=== PATIENT | female | born 1940 | race Hispanic/Latino ===

== ENCOUNTER 2017-04-28 06:37 | Emergency (ER) | payer MEDICARE ==
[2017-04-28 06:38] VITALS: BMI 24.4
--- NOTE | 2017-04-28 07:44 | ED PDOC ---
Arrival/HPI - General Chief Complaint: Lower Extremity Problem/Injury Time Seen by Provider: 04/28/17 07:05 Historian: Patient, Family - History of Present Illness Narrative History of Present Illness (Text): 04/28/17 07:17 Pt is a 76 year old female, whose denies any significant past medical history, presents to the emergency department complaining of left hip pain (left iliac crest area) that radiates down to her left leg for the past week. Pain is constant and currently a 7 out 10 on the pain scale. She notes that when she sits or lays down the pain gets worse. Patient reports taking Tylenol with no relief. She denies any trauma, headache, chest pain, fever, abdominal pain, or any other complaints at this time. PMD: Dr. Damon Barlow Time/Duration: 1 week Symptom Onset: Sudden Symptom Course: Unchanged Quality: Other Severity Level: 7 Activities at Onset: Rest Modifying Factors (Text): Pain gets worse when sitting or laying down. Context: Home Associated Symptoms (Text): Pain radiates down to left calf Past Medical History - Provider Review Nursing Documentation Reviewed: Yes - Cardiac Hx Pacemaker: No - Neurological Hx Paralysis: No - Hematological/Oncological Hx Blood Transfusions: No - Musculoskeletal/Rheumatological Hx Musculoskeletal Disorders: No - Psychiatric Hx Substance Use: No - Anesthesia Hx Anesthesia Reactions: No Hx Malignant Hyperthermia: No Family/Social History - Physician Review Nursing Documentation Reviewed: Yes Family/Social History: No Known Family HX Smoking Status: Never Smoked Hx Alcohol Use: No Hx Substance Use: No Allergies/Home Meds Allergies/Adverse Reactions: Allergies No Known Allergies Allergy (Verified 04/28/17 06:46) Home Medications: Home Meds Medication Instructions Recorded Confirmed [place]-3 Fatty Acids [Fish Oil] 04/28/17 04/28/17 Simvastatin [Simvastatin] 04/28/17 Vit D3-Vit K/Berberine/Hops 04/28/17 [Ostera Tablet] Review of Systems - Physician Review All systems were reviewed & negative as marked: Yes - Review of Systems Constitutional: absent: Fevers Cardiovascular: absent: Chest Pain Gastrointestinal: absent: Abdominal Pain Musculoskeletal: Other (left hip pain radiates down to calf) Neurological: absent: Headache Physical Exam Vital Signs Reviewed: Yes Vital Signs Temp Pulse Resp BP Pulse Ox 04/28/17 08:58 98 F 76 18 146/67 95 04/28/17 06:53 97.7 F 87 16 159/80 H 97 Temperature: Afebrile Blood Pressure: Hypertensive Pulse: Regular Respiratory Rate: Normal Appearance: Positive for: Well-Appearing, Non-Toxic, Comfortable Pain Distress: None Mental Status: Positive for: Alert and Oriented X 3 - Systems Exam Head: Present: Atraumatic, Normocephalic Pupils: Present: PERRL Extroacular Muscles: Present: EOMI Conjunctiva: Present: Normal Ears: Present: Normal Mouth: Present: Moist Mucous Membranes Pharnyx: Present: Normal Nose (External): Present: Atraumatic Neck: Present: Normal Range of Motion Respiratory/Chest: Present: Clear to Auscultation, Good Air Exchange. No: Respiratory Distress, Accessory Muscle Use Cardiovascular: Present: Regular Rate and Rhythm, Normal S1, S2. No: Murmurs Abdomen: Present: Normal Bowel Sounds. No: Tenderness, Distention, Peritoneal Signs Upper Extremity: Present: Normal Inspection. No: Cyanosis, Edema Lower Extremity: Present: Normal ROM, Tenderness (bony point tenderness of left iliac crest), Other (straight leg raise positive at 60 degrees on the left). No : Edema Neurological: Present: GCS=15, Speech Normal Skin: Present: Warm, Dry, Normal Color. No: Rashes Psychiatric: Present: Alert, Oriented x 3, Normal Insight, Normal Concentration Medical Decision Making ED Course and Treatment: 04/28/17 07:17 Impression: A 76 year old patient with left hip pain. Differential Diagnosis included but are not limited to: sciatica vs. osteoarthritis Plan: -- LS spine X-ray -- Pelvis X-ray -- Labs -- Urinalysis -- Codeine, Motrin and Tylenol -- Reassess and disposition 04/28/17 08:46 X-ray of the Lumbar Spine: Creator : Brynn Hernandez MD COMPARISON: No prior. FINDINGS: BONES: There is normal alignment of the lumbar vertebral bodies. Lumbar lordosis is maintained. Vertebral bodies are normal in height. There is diffuse bone demineralization. There is no acute fracture or bone destruction. DISC SPACES: There is mild multilevel degenerative disc disease with anterior osteophytes, reduced disc and multilevel facet arthropathy, worse at L2-3. OTHER FINDINGS: There are no pathologic soft tissue calcifications. Both sacroiliac joints are normal. IMPRESSION: No acute fracture, spondylolysis or spondylolisthesis. Mild multilevel degenerative disc disease, worse at L2-3. 04/28/2017 08:51 X-ray of the pelvis and left hip. Creator : Brynn Hernandez MD PROCEDURE: Radiographs of the pelvis and left hip. COMPARISON: None. FINDINGS:The pelvic ring is intact. There is no acute fracture or bone destruction. There is mild degenerative osteoarthrosis in both hip joints. There is also mild degenerative osteoarthrosis in the sacroiliac joints. There is a large osteophyte arising from the superior aspect of the right pubic bone. IMPRESSION:No acute fracture or bone destruction. Mild degenerative osteoarthrosis in both hip joints. 04/28/17 08:59 On reevaluation the patient feels better and is in no acute distress. I have discussed the results and plan with the patient, who expresses understanding. Patient given the opportunity to ask question, all questions were answered and there is agreement with the plan to discharge the patient home. Patient is stable for discharge. Patient was instructed to follow up with physician/clinic in 1-2 days or return if symptoms persist/worsen or new concerning symptoms arise. - Lab Interpretations Lab Results: 04/28/17 07:45 04/28/17 07:45 Lab Results 04/28/17 07:45: Sodium 141, Potassium 3.9, Chloride 107, Carbon Dioxide 23, Anion Gap 15, BUN 13, Creatinine 0.6, Est GFR ( Amer) > 60, Est GFR (Non- Af Amer) > 60, Random Glucose 104, Calcium 9.9, Total Bilirubin 0.3, AST 26, ALT 29, Alkaline Phosphatase 88, Total Protein 8.0, Albumin 4.4, Globulin 3.6, Albumin/Globulin Ratio 1.2 04/28/17 07:45: WBC 7.4, RBC 4.29, Hgb 12.8, Hct 38.6, MCV 90.0, MCH 29.8, MCHC 33.2, RDW 13.1, Plt Count 326, MPV 10.3, Gran % 75.0 H, Lymph % (Auto) 19.0 L, [place] % (Auto) 4.8, Eos % (Auto) 0.7 L, Baso % (Auto) 0.5, Gran # 5.58, Lymph # 1.4, Robeson # 0.4, Eos # 0.1, Baso # 0.04 I have reviewed the lab results: Yes - RAD Interpretation Radiology Orders: 04/28/17 07:34 PELVIS ONE VIEW [RAD] Stat 04/28/17 07:35 LS SPINE AP/LAT [RAD] Stat Handle Attacher: ED Physician - Medication Orders Current Medication Orders: Discontinued Medications Acetaminophen (Tylenol 325mg Tab) 975 mg PO STAT STA Stop: 04/28/17 07:38 Last Admin: 04/28/17 07:48 Dose: 975 mg Codeine Sulfate (Codeine) 60 mg PO STAT STA Stop: 04/28/17 07:36 Last Admin: 04/28/17 07:48 Dose: 60 mg Ibuprofen (Motrin Tab) 400 mg PO STAT STA Stop: 04/28/17 07:38 Last Admin: 04/28/17 07:48 Dose: 400 mg - Scribe Statement The provider has reviewed the documentation as recorded by the Melva Veliz training under [facility] Provider Scribe Attestation: All medical record entries made by the Melva were at my direction and personally dictated by me. I have reviewed the chart and agree that the record accurately reflects my personal performance of the history, physical exam, medical decision making, and the department course for this patient. I have also personally directed, reviewed, and agree with the discharge instructions and disposition. Disposition/Present on Arrival - Present on Arrival Any Indicators Present on Arrival: No History of DVT/PE: No History of Uncontrolled Diabetes: No Urinary Catheter: No History of Decub. Ulcer: No History Surgical Site Infection Following: None - Disposition Have Diagnosis and Disposition been Completed?: Yes Diagnosis: Hip pain, left, Osteoarthritis Disposition: HOME/ ROUTINE Disposition Time: 08:59 Patient Plan: Discharge Condition: IMPROVED Discharge Instructions (ExitCare): Arthritis (ED) Print Language: UZBEK Additional Instructions: Ms. Yunletitia, thank you for letting us take care of you today. Return to the ER if your symptoms worsen. Take the medication listed below as prescribed. Follow up with Dr. Barlow this week for a re-evaluation. Prescriptions: Acetaminophen [Tylenol 325mg tab] 3 tab PO Q6 PRN #60 tab PRN Reason: Pain, Moderate (4-7) Ibuprofen [Motrin] 1 tab PO TID PRN #30 tab PRN Reason: Pain Naproxen Sodium 2 tab PO Q12 PRN #30 tablet PRN Reason: Pain, Moderate (4-7) Referrals: Tee Barlow MD [Primary Care Provider] - Follow up with primary Forms: [employer] (Ugandan)
[2017-04-28 08:00] LABS: BASO # 0.04 K/mm3 (0.0-2.0); BASO % 0.5 % (0.0-3.0); EOS # 0.1 (0.0-0.7); EOS % 0.7 % (1.5-5.0); GRAN # 5.58 (1.4-6.5); HEMOGLOBIN 12.8 gm/dL (12.0-16.0); LYMPH # 1.4 (1.2-3.4); MEAN CORPUSCULAR HEMOGLOBIN 29.8 pg (25.0-35.0); MEAN CORPUSCULAR HGB CONC 33.2 g/dl (31.0-37.0); MEAN PLATELET VOLUME 10.3 fl (7.0-11.0); MONO # 0.4 (0.1-0.6); MONO % 4.8 % (1.0-6.0); PLATELET COUNT 326 10^3/uL (120.0-450.0); RBC 4.29 10^6/uL (3.5-6.1); RED CELL DISTRIBUTION WIDTH 13.1 % (11.5-14.5); WHITE BLOOD COUNT 7.4 10^3/ul (4.5-11.0)
[2017-04-28 08:12] LABS: ALB/GLOB RATIO 1.2 (1.1-1.8); ALBUMIN 4.4 g/dL (3.0-4.8); ALT/SGPT 29 U/L (7-56); AST/SGOT 26 U/L (15-39); BLOOD UREA NITROGEN 13 mg/dL (7-21); CALCIUM 9.9 mg/dL (8.4-10.5); GFR AFRICAN-AMERICAN > 60; GFR NON-AFRICAN AMERICAN > 60
--- NOTE | 2017-04-28 08:45 | RAD ---
PROCEDURE: Radiographs of the Lumbar Spine. HISTORY: Low back pain COMPARISON: No prior. FINDINGS: BONES: There is normal alignment of the lumbar vertebral bodies. Lumbar lordosis is maintained. Vertebral bodies are normal in height. There is diffuse bone demineralization. There is no acute fracture or bone destruction. DISC SPACES: There is mild multilevel degenerative disc disease with anterior osteophytes, reduced disc and multilevel facet arthropathy, worse at L2-3. OTHER FINDINGS: There are no pathologic soft tissue calcifications. Both sacroiliac joints are normal. IMPRESSION: No acute fracture, spondylolysis or spondylolisthesis. Mild multilevel degenerative disc disease, worse at L2-3.
--- NOTE | 2017-04-28 08:48 | RAD ---
PROCEDURE: Radiographs of the pelvis and left hip. HISTORY: left hip pain COMPARISON: None. FINDINGS: The pelvic ring is intact. There is no acute fracture or bone destruction. There is mild degenerative osteoarthrosis in both hip joints. There is also mild degenerative osteoarthrosis in the sacroiliac joints. There is a large osteophyte arising from the superior aspect of the right pubic bone. IMPRESSION: No acute fracture or bone destruction. Mild degenerative osteoarthrosis in both hip joints.
[2017-04-28 08:59] VITALS: BP 146/67; PULSE 76; RESP 18; TEMP 98; O2SAT 95
== END 2017-04-28 09:17 | disposition home or self-care (01) ==
LOC: ED 06:37
DX: M25.552 Pain in left hip (principal); M16.0 Bilateral primary osteoarthritis of hip

== ENCOUNTER 2019-01-19 10:51 | Outpatient (CLI) | payer MEDICARE | END 2019-01-19 10:52 | disposition home or self-care (01) | LOC: RAD 10:51 | DX: Z13.820 Encounter for screening for osteoporosis (principal) ==